=== PATIENT | female | born 1980 | race Caucasian/White ===

== ENCOUNTER 2019-01-18 08:25 | Emergency (ER) | payer OTHER ==
[~2019-01-18] VITALS: Ht 172.7 cm; Wt 88.5 kg
[~2019-01-18 08:25] MED LIST: MOTION RELIEF25 MG PO; ZOFRAN ODT4 MG PO
[2019-01-18 09:02] LABS: URINE BILIRUBIN NEGATIVE (Negative); URINE BLOOD 1+ (Negative); URINE CLARITY CLEAR; URINE COLOR YELLOW; URINE GLUCOSE-RANDOM NEGATIVE (Negative); URINE KETONES NEGATIVE (Negative); URINE NITRITE-REFLEX NEGATIVE (Negative); URINE PROTEIN TRACE (Negative); URINE SPECIFIC GRAVITY 1.025 (1.005-1.030); URINE UROBILINOGEN 0.2 E.U./dl (0.2-1.0)
[2019-01-18 09:03] LABS: URINE LEUKOCYTES-REFLEX 2+ (Negative)
[2019-01-18 09:07] LABS: ABSOLUTE BASOPHILS 0.1 thou/uL (0.0-0.2); ABSOLUTE EOSINOPHILS 0.1 thou/uL (0.0-0.7); ABSOLUTE LYMPHOCYTES 1.8 thou/uL (0.8-5.3); ABSOLUTE MONOCYTES 0.6 thou/uL (0.0-1.2); BASOPHILS 0.8 %; EOSINOPHILS 0.8 %; HEMATOCRIT 32.8 % (37.0-47.0); HEMOGLOBIN 10.7 gm/dL (12.0-15.0); MCH 24.8 pg (26.0-34.0); MCHC 32.7 g/dL (28.0-37.0); MCV 75.8 fL (80.0-100.0); MONOCYTES 5.5 %; MPV 9.3 fl. (7.2-11.1); NUCLEATED RBCS 0 /100WBC; PLATELET COUNT* 264 thou/uL (150-400); POLYS 75.9 %; RBC 4.33 mil/uL (4.20-5.00); RDW-CV 15.6 % (10.5-14.5); WBC 10.5 thou/uL (4.0-11.0)
[2019-01-18 09:14] LABS: INR 1.1
[2019-01-18 09:28] LABS: CALCIUM 8.5 mg/dL (8.5-10.1); CREATININE 0.8 mg/dL (0.6-1.3); POTASSIUM 4.2 mmol/L (3.5-5.1)
[2019-01-18 09:32] LABS: ALBUMIN 3.5 g/dL (3.4-5.0); TOTAL BILIRUBIN 0.4 mg/dL (<0.1-1.0); TOTAL PROTEIN 7.8 g/dL (6.4-8.2)
[2019-01-18 09:33] LABS: SQUAMOUS >10 Many /LPF (0-3); URINE RBC 0-2 Rare /HPF (0-2)
[2019-01-18 09:34] LABS: CASTS None Seen /LPF (None Seen); CRYSTALS None Seen /LPF (None Seen); MUCUS 4-6 Moderate strn/LPF (None Seen)
[2019-01-18] MEDS ORDERED: CIPROFLOXACIN500 M1 PO (09:38)
[2019-01-18] MEDS ORDERED: ZOFRAN ODT4 MG SUBLING (09:38)
[2019-01-18 10:05] VITALS: BP 121/73
--- NOTE | 2019-01-18 15:39 | EKG ---
[place] [address] ELECTROCARDIOGRAM REPORT Name: BAL WALKER Room: [facility].#: [id number] Admission: 01/18/19 Attend Phys: Discharge: 01/18/19 Date of : 76 Report #: [id number] THIS REPORT FOR: //name// [facility] ED Test Date: 2019-01-18 Test Time: 09:01:20 Pat Name: BAL WALKER Department: Room: Gender: F [employer]: : 1980 Requested By: Saud Romano Order Number: [id number] MD: Te Pemberton Measurements Intervals [place] Rate: 74 P: 64 MI: 149 QRS: 10 QRSD: 97 T: 28 QT: 370 QTc: 411 Interpretive Statements Sinus rhythm RSR' in V1 or V2, right VCD or RVH Compared to ECG 03/08/2017 00:34:00 no change Electronically Signed On 01-18-2019 15:39:01 CDT by Te Pemberton [email or web address] <ELECTRONICALLY SIGNED> By: Te Pemberton MD, [facility] 01/18/19 1539 0 0 Te Pemberton MD, [facility] /EPI
== END 2019-01-18 10:06 | disposition home or self-care (01) ==
LOC: M.ERS 08:25
PROVIDERS: Family Medicine
DX: N39.0 Urinary tract infection, site not specified (principal); R11.2 Nausea with vomiting, unspecified

== ENCOUNTER → 2019-09-14 | Outpatient (CLI) | payer OTHER ==
[~2019-09-14] MED LIST changes: +CIPROFLOXACIN500 M1 PO; +ZOFRAN ODT4 MG SUBLING
== END ==
LOC: M.ULTRA 11:00
DX: N83.209 Unspecified ovarian cyst, unspecified side (principal); Z90.721 Acquired absence of ovaries, unilateral